=== PATIENT | female | born 2000 | race Caucasian/White ===

== ENCOUNTER 2022-11-13 03:31 | Emergency (ER) | payer BC, SELFPAY ==
[2022-11-13 03:36] VITALS: BP 118/82; PULSE 91; RESP 16; TEMP 36.2; O2SAT 99
[2022-11-13 04:47] VITALS: PULSE 76; RESP 18; O2SAT 99
--- NOTE | 2022-11-13 16:12 | ED.GENADULT ---
HPI - General Adult General Chief complaint: Eye Problems Stated complaint: contact lens in left eye Time Seen by Provider: 11/13/22 03:41 History of Present Illness HPI narrative: 22-year-old young woman presenting to the emergency department with concern of retained left eye contact. She was unable to locate it for removal or frankly removed yesterday. Since then has had increasing pain and tearing. Redness to the eye, 4/10 discomfort. No trauma otherwise as noted. Related Data Home Medications Medication Instructions Recorded Confirmed norethindrone 1 mg-ethinyl 1 tab PO DAILY 11/13/22 11/13/22 estradiol 20 mcg (24)-iron 75 mg (4) tablet () Allergies Allergy/AdvReac Type Severity Reaction Status Date / Time No Known Drug Allergies Allergy Verified 11/13/22 03:39 Review of Systems Status of ROS: Reports: 6 or more systems reviewed and unremarkable except as noted in History and below PFSH PFS Social History Smoking Status: Never smoker How often do you have a drink containing alcohol: monthly or less AUDIT-C Alcohol total score: 1 Non-prescribed substance use: denies use service: No Exam Narrative: Exam Narrative: Pleasant. Tall. Calm. Wearing eyeglasses. Visual acuity testing is done. Reported to me to be unremarkable. There is rhinorrhea. Head and face looks to be atraumatic. Right eye sclera slightly injected but no drainage. Left eye much more injected with tearing. PERRLA. Extraocular movements are intact. Placement of tetracaine. Examination of the left eye more specifically reveals transparent cornea. On closer exam there appears to be a small reflection on about the 8 o'clock position on the cornea this is confirmed with fluorescein dye staining as well as a 2 mm or so inferolateral scleral abrasion and corresponding lid conjunctival abrasion. Was not able to detect foreign body i.e. contact. Partial lid eversion did not reveal this contact. Tolerated exam very well. Const: Vital Signs, click to edit/add: Vital Signs - 24 hr 11/13/22 03:36 11/13/22 04:47 Temperature 97.2 F L Pulse Rate [Right Pulse Oximeter] 91 76 Respiratory Rate 16 18 Blood Pressure [Ri ght Upper Arm] 118/82 Pulse Oximetry 99 99 Oxygen Delivery Me thod Room Air Room Air Documenting provider has reviewed patient's vital signs: yes Course Vital Signs Vital signs: Initial Vital Signs Temperature 97.2 F L 11/13/22 03:36 Temperature Source Temporal Artery Scan 11/13/22 03:36 Pulse Rate 91 11/13/22 03:36 Pulse Rhythm 11/13/22 03:36 Respiratory Rate 16 11/13/22 03:36 Blood Pressure 118/82 11/13/22 03:36 Blood Pressure Mean 94 11/13/22 03:36 Pulse Oximetry 99 11/13/22 03:36 Oxygen Delivery Method 11/13/22 03:36 Vital Signs Temperature 97.2 F L 11/13/22 03:36 Pulse Rate 91 11/13/22 03:36 Respiratory Rate 16 11/13/22 03:36 Blood Pressure 118/82 11/13/22 03:36 Pulse Oximetry 99 11/13/22 03:36 Oxygen Delivery Method 11/13/22 03:36 Temperature 97.2 F L 11/13/22 03:36 Pulse Rate 76 11/13/22 04:47 Respiratory Rate 18 11/13/22 04:47 Blood Pressure 118/82 11/13/22 03:36 Pulse Oximetry 99 11/13/22 04:47 Oxygen Delivery Method 11/13/22 04:47 Medical Decision Making MDM Narrative Medical decision making narrative: Again not able to locate contact. Occasionally this can be rather difficult. Seems to have small injury to cornea and abrasion to sclera. After exam as noted above. Placed erythromycin ointment even more so for the rotation. Discharge Plan Discharge Clinical Impression: Abrasion of sclera, Corneal abrasion Patient Disposition: Home, Self-Care Condition: Stable Additional Instructions: Can take up to 800 mg of ibuprofen or up to 1000 mg of acetaminophen per dose. Alternative to the ibuprofen can be up to 500 mg of naproxen 2 times daily. Erythromycin ointment as prescribed. Written for 7 days though I suspect 5 days should be plenty of treatment. Be seen for marked increase in pain with eye movement, copious purulent drainage, surrounding redness, heat, swelling. Prescriptions: No Action 24 1 mg-20 mcg (24)/75 mg (4) tablet 1 tab PO DAILY Follow Up/Referrals: Provider,Not a Local [Primary Care Provider] - Stand Alone Forms: [employer] Info Instructions
== END 2022-11-13 04:49 | disposition home or self-care (01) ==
PROVIDERS: Emergency Provider Family Medicine
DX: S05.01XA Injury of conjunctiva and corneal abrasion without foreign body, right eye, initial encounter (principal)
CPT/HCPCS: 99283; A9270